=== PATIENT | female | born 1965 | race Caucasian/White ===

== ENCOUNTER → 2018-03-30 | Outpatient (CLI) | payer OTHER ==
--- NOTE | 2018-03-30 14:37 | KCIC ---
Cervical spine, 5 views, 03/30/2018: HISTORY: Right neck pain, tingling and numbness and right hand There is mild disc space narrowing and moderate marginal spurring at C5-6 and C6-7. There is a lesser degree of spurring at C4-5. There is slight anterolisthesis at C4-5 which appears to be due to facet joint arthropathy. No fracture is identified. There is mild foraminal narrowing at C5-6 bilaterally. The prevertebral soft tissues are unremarkable. IMPRESSION: 1. Moderate degenerative disc disease at C5-6 and C6-7. 2. Minimal anterolisthesis at C4-5 due to facet joint arthropathy. Electronically signed by: Clovis Dash MD (03/30/2018 2:34 PM) [facility]
== END | disposition home or self-care (01) ==
LOC: KCIC 13:54
DX: M50.323 Other cervical disc degeneration at C6-C7 level (principal); M12.88 Other specific arthropathies, not elsewhere classified, other specified site; M43.12 Spondylolisthesis, cervical region; M48.02 Spinal stenosis, cervical region
CPT/HCPCS: 72050